=== PATIENT | female | born 1960 | race Caucasian/White ===

== ENCOUNTER → 2017-06-28 | Outpatient (CLI) | payer OTHER ==
--- NOTE | 2017-07-02 09:03 | MM ---
Reason for exam: screening (asymptomatic). Last mammogram was performed 1 year and 2 months ago. History: Patient is postmenopausal and has history of other cancer at age 46. Family history of breast cancer in sister at age 49 and breast cancer in aunt at age 55. Benign MG stereo VAD BX addl LT of the left breast, December 29, 2013. Benign MG stereo VAD BX LT of the left breast, December 29, 2013. Benign right mammotome panel of the right breast, November 09, 2009. Took hormonal contraceptives for 9 years. Physical Findings: A clinical breast exam by your physician is recommended on an annual basis and results should be correlated with mammographic findings. MG 3D Screening Mammo W/Cad Bilateral CC and MLO view(s) were taken. Prior study comparison: April 16, 2016, bilateral MG 3d screening mammo w/cad. December 10, 2013, left breast MG work up mamm w CAD LT. The breast tissue is heterogeneously dense. This may lower the sensitivity of mammography. Previous mammotome biopsy in the right breast. There is chronic nodularity in the left breast from 2016. Stable bilateral grouped calcifications. No significant changes when compared with prior studies. ASSESSMENT: Negative, BI-RAD 1 RECOMMENDATION: Routine screening mammogram of both breasts in 1 year.
== END | disposition home or self-care (01) ==
LOC: RADMAMWWP 12:07
PROVIDERS: ATTEND Internal Medicine
DX: Z12.31 Encounter for screening mammogram for malignant neoplasm of breast (principal)
CPT/HCPCS: 77063; 77067

== ENCOUNTER → 2017-10-21 | Outpatient (CLI) | payer OTHER ==
--- NOTE | 2017-10-21 15:32 | US ---
EXAMINATION TYPE: US mass soft tissue chest/back DATE OF EXAM: 10/21/2017 COMPARISON: NONE CLINICAL HISTORY: R22.2 Localized swelling, mass and lump, trunk. Pt states palpable lump midline/rig ht mid back, has decreased in size Scanning of area of clinical concern right mid back shows no worrisome solid or cystic mass or abnorm al fluid collection on 9 images saved, 10th image saved shows comparison of opposite left side with s imilar sonographic appearance. IMPRESSION: As above, unremarkable study.
== END | disposition home or self-care (01) ==
LOC: RADUSWWP 14:58
PROVIDERS: ATTEND Internal Medicine
DX: R22.2 Localized swelling, mass and lump, trunk (principal)

== ENCOUNTER → 2019-04-21 | Outpatient (CLI) | payer OTHER ==
[2019-04-21 17:48] LABS: Ionized Calcium 4.6 mg/dL (4.5-5.3)
[2019-04-21 17:52] LABS: Basophils % (A) 1 %; Eosinophils # (A) 0.1 k/uL (0-0.7); Eosinophils % (A) 1 %; HCT 43.3 % (34.0-46.0); HGB 14.6 gm/dL (11.4-16.0); Lymphocytes # (A) 1.9 k/uL (1.0-4.8); Lymphocytes % (A) 31 %; MCH 30.1 pg (25.0-35.0); MCHC 33.7 g/dL (31.0-37.0); MCV 89.3 fL (80.0-100.0); Monocytes # (A) 0.3 k/uL (0-1.0); Monocytes % (A) 5 %; Neutrophils # (A) 3.7 k/uL (1.3-7.7); Neutrophils % (A) 60 %; Platelet Count 284 k/uL (150-450); RBC 4.85 m/uL (3.80-5.40); RDW 12.4 % (11.5-15.5); WBC 6.1 k/uL (3.8-10.6)
[2019-04-21 22:22] LABS: Erythrocyte Sedimentation Rate 5 mm/hr (0-20)
[2019-04-21 23:42] LABS: Protein, Total 6.6 g/dL (6.2-8.2)
[2019-04-22 00:40] LABS: African American GFR (CKD) 94.9 (60.0-200.0); Albumin 4.9 g/dL (3.80-4.90); Albumin/Globulin Ratio 2.88 (1.60-3.17); Anion Gap 11.5 mmol/L (4.00-12.00); BUN/Creat Ratio 18.75 Ratio (12.00-20.00); Calcium 9.5 mg/dL (8.7-10.3); Carbon Dioxide 26.5 mmol/L (21.6-31.8); Globulin 1.7 g/dL (1.6-3.3); Magnesium 2.1 mg/dL (1.5-2.4); Phosphorus 4.7 mg/dL (2.4-5.1); Potassium 3.8 mmol/L (3.5-5.5); Total Bilirubin 0.5 mg/dL (0.3-1.2); Total Protein 6.6 g/dL (6.2-8.2)
[2019-04-23 10:22] LABS: Gamma Globulin 0.64 g/dL (0.70-1.50)
== END | disposition home or self-care (01) ==
LOC: LABWHC1 17:18
PROVIDERS: ATTEND Otolaryngology Otolaryngic Allergy
DX: C73 Malignant neoplasm of thyroid gland (principal); M89.8X8 Other specified disorders of bone, other site; E21.0 Primary hyperparathyroidism
CPT/HCPCS: 36415; 80053; 82306; 82330; 83735; 83970; 84100; 84165; 85025; 85652; 86038; 86235; 86334; 86335

== ENCOUNTER → 2019-05-02 | Outpatient (CLI) | payer OTHER | END | disposition home or self-care (01) | LOC: LABWHC1 09:26 | PROVIDERS: ATTEND Otolaryngology Otolaryngic Allergy | DX: C73 Malignant neoplasm of thyroid gland (principal); E21.0 Primary hyperparathyroidism; M89.8X8 Other specified disorders of bone, other site | CPT/HCPCS: 36415; 82040 ==

== ENCOUNTER → 2019-05-02 | Outpatient (CLI) | payer OTHER ==
--- NOTE | 2019-05-02 15:26 | CT ---
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 Having issues w/ soft spo ts on top of head. CT DLP: 1064.30 mGycm Automated Exposure Control for Dose Reduction was Utilized. TECHNIQUE: CT scan of the head is performed with IV contrast.,CT scan of the head is performed with w ith IV Contrast, patient injected with 100 mL of Isovue 300. FINDINGS: Noncontrast images show no acute intracranial hemorrhage or midline shift. The ventricles and sulci are within normal limits in size. Postcontrast images show no suspicious enhancing intrapa renchymal mass. The globes are intact. Mild mucosal thickening in the ethmoid sinuses. Remaining para nasal sinuses and mastoid air cells are well aerated. There is a sclerotic lesion of the right anteri or parietal bone measuring 3.3 cm involving the diploic space extending from the inner table to the o uter table with expansile nature. There is associated dural thickening along the inner table and foci of heterotopic ossification with hazy periosteal reaction along the inner table at the dural surface . This appears to be a solitary lesion. Prominent arachnoid granulations and venous lakes are noted w ithin the calvarium. IMPRESSION: Expansile right parietal sclerotic lesion with periosteal reaction and dural thickening. This appears progressive and metastasis is a primary consideration. Atypical Paget's disease would be an alternative consideration.
--- NOTE | 2019-05-02 15:32 | CT ---
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 Having issues w/ soft spo ts on top of head. COMPARISON: NONE CT DLP: 324.30 mGycm. Automated Exposure Control for Dose Reduction was Utilized. TECHNIQUE: CT scan of the neck is performed with IV Contrast, patient injected with 100 mL of Isovue 300, axial images are obtained, coronal and sagittal reformatted images are reviewed. FINDINGS: Airway: Probable secretions within the vallecula. Parotid/submandibular glands: No gross abnormality seen. Carotid/Vascular Structures: There is a conventional three-vessel branch pattern of the aortic arch. The common carotids, carotid bulbs, and internal carotid arteries are patent. Vertebral arteries are also patent and codominant. Visualized portion of the basilar artery is patent. Osseous Structures: Mild mucosal thickening in the ethmoid and inferior maxillary sinuses. Mild multi level degenerative change of the cervical spine. Slight levoscoliosis of the cervical spine. Other: Thyroid is surgically absent. Sutures are seen within the right upper lobe posteriorly either from prior biopsy or wedge resection. Minimal subsegmental dependent atelectasis and biapical pleural parenchymal scarring. No adenopathy is seen. IMPRESSION: No significant abnormality is seen. No adenopathy seen or solid mass in the thyroidectom y bed. No suspicious osseous lesion.
== END | disposition home or self-care (01) ==
LOC: RADCTMAIN 08:22
PROVIDERS: ATTEND Otolaryngology Otolaryngic Allergy
DX: C73 Malignant neoplasm of thyroid gland (principal)
CPT/HCPCS: 70491; 70460; Q9967

== ENCOUNTER → 2019-05-08 | Outpatient (CLI) | payer OTHER ==
[2019-05-09 00:20] LABS: Protein, Total 6.4 g/dL (6.2-8.2)
[2019-05-09 11:46] LABS: Free Kappa Lt Chain Qnt, Serum 0.95 mg/dL (0.33-1.94)
[2019-05-11 13:23] LABS: Albumin 4.31 g/dL (3.80-4.90); Gamma Globulin 0.57 g/dL (0.70-1.50)
== END | disposition home or self-care (01) ==
LOC: LABWHC1 17:18
PROVIDERS: ATTEND Otolaryngology Otolaryngic Allergy
DX: C73 Malignant neoplasm of thyroid gland (principal)
CPT/HCPCS: 36415; 83883; 84165; 84432; 86335; 86800

== ENCOUNTER 2020-09-08 13:11 | Emergency (ER) | payer OTHER ==
[2020-09-08 13:16] VITALS: RESP 18
--- NOTE | 2020-09-08 13:18 | ED ---
General Adult HPI - General Source: patient, RN notes reviewed Mode of arrival: ambulatory Limitations: no limitations <Jacob Ortiz - Last Filed: 09/08/20 13:15> <Ang Lynn - Last Filed: 09/08/20 14:57> - General Stated complaint: Headache, COVID exposure Time Seen by Provider: 09/08/20 13:13 - History of Present Illness Initial comments: This a 60-year-old female presents emergency Department chief complaint covid exposure. Patient states her has been tested positive today. Patient states her symptoms started on Saturday with a headache, mild shortness of breath. Patient denies any symptoms any exertional symptoms no fevers chills no body aches. Patient has a nausea and diarrhea constipation. Patient offers no other complaints. (Jacob Ortiz) Review of Systems ROS Other: All systems not noted in ROS Statement are negative. <Jacob Ortiz - Last Filed: 09/08/20 13:15> ROS Other: All systems not noted in ROS Statement are negative. <Ang Lynn - Last Filed: 09/08/20 14:57> ROS Statement: Those systems with pertinent positive or pertinent negative responses have been documented in the HPI. General Exam General appearance: alert, in no apparent distress Head exam: Present: atraumatic, normocephalic, normal inspection Respiratory exam: Present: normal lung sounds bilaterally. Absent: respiratory distress, wheezes, rales, rhonchi, stridor Cardiovascular Exam: Present: regular rate, normal rhythm, normal heart sounds. Absent: systolic murmur, diastolic murmur, rubs, gallop, clicks <Jacob Ortiz - Last Filed: 09/08/20 13:15> Eye exam: Present: normal appearance ENT exam: Present: normal exam, mucous membranes moist Neck exam: Present: normal inspection, full ROM. Absent: thyromegaly (thyroidectomy scar) GI/Abdominal exam: Present: soft Neurological exam: Present: alert, oriented X3, CN II-XII intact Psychiatric exam: Present: normal affect, normal mood Skin exam: Present: warm, dry, intact, normal color. Absent: rash <Ang Lynn - Last Filed: 09/08/20 14:57> Course Vital Signs 09/08/20 13:12 Temperature 98.3 F Pulse Rate 82 Respiratory 18 Rate Blood Pressure 118/72 O2 Sat by Pulse 97 Oximetry Medical Decision Making <Ang Lynn - Last Filed: 09/08/20 14:57> - Medical Decision Making Patient well-appearing, symptoms started on Saturday with congestion, patient denies nausea vomiting diarrhea or fevers. Patient also denies chest pain or shortness of breath weakness or fatigue. Patient advised to quarantine and return if worsening symptoms. Chest x-ray negative for infiltrates, heart stable in size, no acute process. Patient agreeable to this plan case discussed with Dr. Hernandez who is comfortable with this plan. (Ang Lynn) - Lab Data Lab Results 09/08/20 Range/Units 13:19 Coronavirus (PCR) Detected A (Not Detectd) Disposition <Jacob Ortiz - Last Filed: 09/08/20 13:15> Is patient prescribed a controlled substance at d/c from ED?: No Time of Disposition: 14:57 <Ang Lynn - Last Filed: 09/08/20 14:57> Clinical Impression: COVID-19 Disposition: HOME SELF-CARE Condition: Good Instructions (If sedation given, give patient instructions): Coronavirus Disease 2019 (COVID-19) Additional Instructions: Return if shortness of breath, chest pain or dyspnea. Follow-up with the primary care doctor within 1 week, quarantine for 14 days from symptom onset. Referrals: Naida Washington MD [Primary Care Provider] - 1-2 days
--- NOTE | 2020-09-08 14:36 | XR ---
EXAMINATION TYPE: XR chest 2V DATE OF EXAM: 09/08/2020 COMPARISON: NONE HISTORY: Shortness of breath TECHNIQUE: Frontal and lateral views of the chest are obtained. FINDINGS: Scattered senescent parenchymal changes noted. Hyperinflation compatible with COPD. No evidence for infiltrate. No evidence for atelectasis. Heart size is stable. Mediastinal structures are stable and grossly unremarkable. No evidence for hilar prominence. Degenerative changes dorsal spine. IMPRESSION: 1. No evidence for acute pulmonary disease.
[2020-09-08 15:16] VITALS: BP 107/70; PULSE 76; TEMP 98.5
== END 2020-09-08 15:16 | disposition home or self-care (01) ==
LOC: EC 13:11
DX: U07.1 COVID-19 (principal)
CPT/HCPCS: 71046; 87635; 99285